=== PATIENT | male | born 1965 | race Caucasian/White ===

== ENCOUNTER 2020-03-30 16:20 | Emergency (ER) | payer BC, OTHER ==
[~2020-03-30] VITALS: Ht 185.4 cm; Wt 82.0 kg
[~2020-03-30 16:20] MED LIST: MECL25TA3 PO
[2020-03-30 16:48] LABS: BASOPHILS # (AUTO) 0.1 X10'3 (0-0.2); BASOPHILS % (AUTO) 0.8 % (0-1); EOSINOPHILS # (AUTO) 0.2 X10'3 (0-0.9); EOSINOPHILS % (AUTO) 3.5 % (0-6); HEMOGLOBIN 16.1 g/dl (14.0-17.9); LYMPHOCYTES # (AUTO) 2.4 X10'3 (1.1-4.8); LYMPHOCYTES % (AUTO) 38.1 % (21-51); MEAN CORPUSCULAR HEMOGLOBIN 30.9 PG (27.0-31.0); MEAN CORPUSCULAR HGB CONC 34.9 g/dL (33.0-36.5); MEAN CORPUSCULAR VOLUME 88.5 FL (78-98); MEAN PLATELET VOLUME 8.5 FL (7.4-10.4); MONOCYTES # (AUTO) 0.4 X10'3 (0-0.9); NEUTROPHILS # (AUTO) 3.2 X10'3 (1.8-7.7); NEUTROPHILS % (AUTO) 50.6 % (42-75); PLATELET COUNT 237 X10'3 (140-440); RED CELL DISTRIBUTION WIDTH 12.8 % (11.5-14.5); WHITE BLOOD COUNT 6.4 X10'3 (4.5-11.0)
[2020-03-30] MEDS ORDERED: DEXL60CA3 PO (16:51)
[2020-03-30 16:56] LABS: PARTIAL THROMBOPLASTIN TIME 28 SECONDS (22-32)
[2020-03-30 16:59] LABS: ALANINE AMINOTRANSFERASE 21 U/L (12-78); ALBUMIN 4.3 G/DL (3.4-5.0); ALBUMIN/GLOBULIN RATIO 1.1 (1.1-1.5); ALKALINE PHOSPHATASE 85 IU/L (46-116); ANION GAP 8 (8-16); ASPARTATE AMINO TRANSFERASE 10 U/L (10-37); BILIRUBIN,TOTAL 0.3 MG/DL (0.1-1.0); BLOOD UREA NITROGEN 14 MG/DL (7-18); BUN/CREATININE RATIO 13.2 (5.4-32.0); CALCIUM 9.1 MG/DL (8.5-10.1); CHLORIDE 107 MMOL/L (99-107); CREATININE 1.06 MG/DL (0.60-1.10); POTASSIUM 3.9 MMOL/L (3.5-5.1); SODIUM 142 MMOL/L (135-145); TOTAL CARBON DIOXIDE 27.5 MMOL/L (24-32); TOTAL PROTEIN 8.2 G/DL (6.4-8.2); eGFR 73 ML/MIN
[2020-03-30 17:02] LABS: TROPONIN I < 0.04 NG/ML (0.0-0.05)
[2020-03-30 17:03] LABS: GLUCOSE 109 MG/DL (70-104)
[2020-03-30] MEDS ORDERED: iohexol 350MG/ML 100ml bottle IV ONE (17:24)
--- NOTE | 2020-03-30 17:30 | NUR ---
Called to see pt who has had flucuating symptoms, started sunday with visual loss which improved. pt reports that at 11 am today began noticing left arm and leg weakness with tingling to left arm. His vision has at times been dark, with spots of lights to right eye, appears to have a right gaze preference, able to cross midline. reports blurry vision to left eye. Has had neuro consult prior to my arrival, pt may benefit from cta with these multi territory symptoms. He reports racing heart at time. He also feels dizzy and sob, and "not right"
[2020-03-30 18:35] LABS: C-REACTIVE PROTEIN < 0.05 MG/DL (0.0-0.5)
--- NOTE | 2020-03-30 19:13 | NUR ---
cindy mayfield talking with pt and updating that he ahs spoken with hospitalist and oopthalmologist at [facility], awiting confirmation of a bed for transfer. VSS. PAIN IS 8 OUT OF 10 TO MID FOREHEAD PT ALSO WITH A LOT OF GENERAL PAIN FROM CHRONIC PAIN
--- NOTE | 2020-03-30 21:07 | NUR ---
up to the bathroom w/o problem
[2020-03-30 21:53] VITALS: BP 153/97
== END 2020-03-30 21:30 | disposition short-term general hospital (02) ==
LOC: ER 16:20
DX: H54.7 Unspecified visual loss (principal); R53.1 Weakness; G43.909 Migraine, unspecified, not intractable, without status migrainosus; G89.29 Other chronic pain; Z88.0 Allergy status to penicillin; Z88.6 Allergy status to analgesic agent
CPT/HCPCS: 36415; 70450; 70496; 70498; 71045; 80053; 84484; 85025; 85610; 85651; 85730; 86140; 93005; 99285; Q9967

== ENCOUNTER 2021-08-03 12:09 | Emergency (ER) | payer BC ==
[~2021-08-03] VITALS: Ht 188 cm; Wt 67.2 kg
[~2021-08-03 12:09] MED LIST changes: +DEXL60CA3 PO; -MECL25TA3 PO
--- NOTE | 2021-08-03 12:15 | NUR ---
WOUND DRESSING APPLIED IN LOBBY, APPOX 3 IN LAC ACROSSED TOP OF HAND. GAUZE AND COBAN APPLIED. BLEEDING CONTROLLED. NO BLOOD THINNINGS.
[2021-08-03 14:30] VITALS: BP 143/83
[2021-08-03] MEDS ORDERED: LIDOcaine 1% W/epiNEPHrine 1:100,000 20ml vial SQ ONE (15:50)
== END 2021-08-03 16:17 | disposition home or self-care (01) ==
LOC: ER 12:10
DX: S61.512A Laceration without foreign body of left wrist, initial encounter (principal); R20.0 Anesthesia of skin; G43.909 Migraine, unspecified, not intractable, without status migrainosus; G89.29 Other chronic pain; Z86.73 Personal history of transient ischemic attack (TIA), and cerebral infarction without residual deficits; Z88.0 Allergy status to penicillin; Z79.82 Long term (current) use of aspirin; Z79.899 Other long term (current) drug therapy; W45.8XXA Other foreign body or object entering through skin, initial encounter; Y93.89 Activity, other specified; Y92.89 Other specified places as the place of occurrence of the external cause; Y99.8 Other external cause status
CPT/HCPCS: 12002; 99282